=== PATIENT | male | born 1960 | race Caucasian/White ===

== ENCOUNTER → 2017-10-06 | Day surgery (SDC) | payer OTHER ==
[~2017-10-06] VITALS: Ht 177.8 cm; Wt 89.8 kg
[~2017-10-06] MED LIST: ARMOUR THYROID180 M1 PO; LISINOPRIL-HCT1 EACH PO; VITAMIN D5000 UNIT PO
--- NOTE | ~2017-10-06 | O ---
[place], [place] OPERATIVE NOTE NAME: GARCÍA SWEENEY UNIT #: [id number] ROOM: DOCTOR: RANI REYEZ MD BIRTHDATE: [birth year] DOS: 10/06/2017 PROCEDURE: Colonoscopy and polypectomy. INDICATIONS FOR THE PROCEDURES: Colon cancer screening. An informed consent was obtained from the patient after indication of procedure, the alternatives and potential complications were explained to him procedure. PROCEDURE MEDICATIONS: Sedation was administered by Anesthesiology Department. SCOPE USED: Olympus pediatric colonoscope, variable stiffness, GIF-180, depth of insertion was to the cecum, which was identified by the usual landmarks, appendiceal orifice, ileocecal valve and triangular fold, in addition to transillumination in the right lower quadrant. FINDINGS: After adequate sedation, the patient was placed in left lateral decubitus position. Rectal examination showed normal sphincter tone and no external hemorrhoids. Scope was introduced into the rectum, then advanced to the cecum with no difficulty. The prep was adequate. Four polyps were identified, a 12 mm ascending colon polyp, which was removed with hot mini snare, a 6 mm transverse colon polyp removed with a cold snare. A 14 mm transverse colon polyp removed with a hot snare and a 20 mm pedunculated sigmoid polyp which was removed with the hot mini snare. The remaining colon mucosa appeared otherwise normal and retroflexed views in the rectum revealed grade 1 internal hemorrhoids. Scope was then withdrawn after the rectum was decompressed. The patient tolerated the procedure well. IMPRESSION: 1. Colon polyps x 4, removed. 2. Small internal hemorrhoids. 3. Normal colon mucosa otherwise. PLAN: We will review the histopathology reports and treat the patient accordingly. The patient was advised to avoid aspirin and NSAIDs for the next 10 days. Office followup will be scheduled in 2-3 weeks. [place], [place] OPERATIVE NOTE NAME: GARCÍA SWEENEY [place] ACC #: [id number] UNIT #: [id number] ROOM: DOCTOR: RANI REYEZ MD BIRTHDATE: [birth year] RANI REYEZ MD CM:OPRECORD:OPERATIVE NOTE 2 RANI REYEZ MD 10/09/17 0416 interface
[2017-10-06 06:45] VITALS: BP 128/88
[2017-10-06 08:13] VITALS: BP 131/85
[2017-10-06 08:29] VITALS: BP 160/88
[2017-10-06 09:19] VITALS: BP 150/68
== END | disposition home or self-care (01) ==
LOC: SDC 10-03 08:00
DX: Z12.11 Encounter for screening for malignant neoplasm of colon (principal); D12.2 Benign neoplasm of ascending colon; D12.5 Benign neoplasm of sigmoid colon; D12.3 Benign neoplasm of transverse colon; I10 Essential (primary) hypertension; E07.9 Disorder of thyroid, unspecified; Z87.891 Personal history of nicotine dependence; K64.0 First degree hemorrhoids